=== PATIENT | female | born 1965 | race Caucasian/White ===

== ENCOUNTER → 2017-02-10 | Outpatient (CLI) | payer OTHER ==
--- NOTE | 2017-02-10 11:47 | MM ---
Reason for exam: screening (asymptomatic). Baseline mammogram. History: Patient is postmenopausal. Physical Findings: Nurse did not find any significant physical abnormalities on exam. MG 3D Screening Mammo W/Cad Bilateral CC and MLO view(s) were taken. The breast tissue is extremely dense which could obscure a lesion on mammography. There is no discrete abnormality. These results were verbally communicated with the patient and result sheet given to the patient on 02/10/17. ASSESSMENT: Negative, BI-RAD 1 RECOMMENDATION: Routine screening mammogram of both breasts in 1 year.
== END | disposition home or self-care (01) ==
LOC: RADMAMWWP 10:01
PROVIDERS: ATTEND Family Medicine
DX: Z12.31 Encounter for screening mammogram for malignant neoplasm of breast (principal)
CPT/HCPCS: 77063; G0202

== ENCOUNTER → 2018-06-15 | Outpatient (CLI) | payer BC ==
--- NOTE | 2018-06-20 12:59 | MM ---
Reason for exam: screening (asymptomatic). Last mammogram was performed 1 year and 4 months ago. History: Patient is postmenopausal and history of other cancer. Family history of breast cancer in maternal grandmother. Physical Findings: A clinical breast exam by your physician is recommended on an annual basis and results should be correlated with mammographic findings. MG 3D Screening Mammo W/Cad Bilateral CC and MLO view(s) were taken. Prior study comparison: February 10, 2017, bilateral MG 3d screening mammo w/cad. The breast tissue is heterogeneously dense. This may lower the sensitivity of mammography. There is no discrete abnormality. ASSESSMENT: Negative, BI-RAD 1 RECOMMENDATION: Routine screening mammogram of both breasts in 1 year.
== END | disposition home or self-care (01) ==
LOC: RADMAMWWP 10:42
PROVIDERS: ATTEND Family Medicine
DX: Z12.31 Encounter for screening mammogram for malignant neoplasm of breast (principal)
CPT/HCPCS: 77063; 77067

== ENCOUNTER → 2018-08-08 | Outpatient (CLI) | payer BC ==
--- NOTE | 2018-08-08 14:53 | MR ---
EXAMINATION TYPE: MR knee LT wo con DATE OF EXAM: 08/08/2018 COMPARISON: X-ray 07/12/2018 HISTORY: Lt knee pain, medial aspect, x 3 mos, no trauma TECHNIQUE: Multiplanar, multisequence imaging of the left knee is performed without IV contrast. FINDINGS: MEDIAL MENISCUS: There is a simple linear tear posterior horn medial meniscus LATERAL MENISCUS: Anterior and posterior horns are intact without tear. CRUCIATE LIGAMENTS: The anterior and posterior cruciate ligaments are intact and unremarkable. COLLATERAL LIGAMENTS: The medial collateral ligament and lateral collateral ligament complex are inta ct and unremarkable. EXTENSOR MECHANISM: Visualized quadriceps and patellar tendons are intact. EFFUSION: No significant suprapatellar joint effusion. POPLITEAL CYST: No popliteal/yang cyst. TRICOMPARTMENT SPACES: Joint spaces are preserved. No erosive changes. CARTILAGE: Cartilage is preserved. BONE MARROW SIGNAL: There is faint nonspecific signal in the epiphysis centrally within the tibia com patible with nonspecific marrow edema. IMPRESSION: 1. Linear tear posterior horn medial meniscus. 2. Nonspecific marrow edema involving the diaphysis of the tibia with no definite fracture line.
== END ==
LOC: RADMRIMAIN 14:00
PROVIDERS: ATTEND Orthopaedic Surgery
DX: S83.242A Other tear of medial meniscus, current injury, left knee, initial encounter (principal)

== ENCOUNTER → 2018-08-18 | Outpatient (CLI) | payer BC ==
--- NOTE | 2018-08-18 14:12 | XR ---
EXAMINATION TYPE: XR chest 2V DATE OF EXAM: 08/18/2018 COMPARISON: Chest CT 04/25/2013 HISTORY: Presurgical TECHNIQUE: Frontal and lateral views of the chest are obtained. FINDINGS: There is no focal air space opacity, pleural effusion, or pneumothorax seen. The cardiac silhouette size is within normal limits. There is been interval vertebroplasty at approximately T8 l evel. The osseous structures are intact. Surgical clips present in the upper abdomen. Nodules seen on CT are not seen on plain film. IMPRESSION: No acute cardiopulmonary process.
== END | disposition home or self-care (01) ==
LOC: RADXRMAIN 10:33
PROVIDERS: ATTEND Orthopaedic Surgery
DX: Z01.818 Encounter for other preprocedural examination (principal); M23.92 Unspecified internal derangement of left knee
CPT/HCPCS: 71046

== ENCOUNTER → 2018-08-18 | Outpatient (CLI) | payer BC ==
[2018-08-18 12:00] LABS: Basophils # (A) 0.1 k/uL (0-0.2); Basophils % (A) 1 %; Eosinophils # (A) 0.1 k/uL (0-0.7); Eosinophils % (A) 1 %; HCT 42.4 % (34.0-46.0); HGB 14.2 gm/dL (11.4-16.0); Lymphocytes # (A) 1.2 k/uL (1.0-4.8); Lymphocytes % (A) 21 %; MCH 33.7 pg (25.0-35.0); MCHC 33.6 g/dL (31.0-37.0); MCV 100.2 fL (80.0-100.0); Macrocytosis Slight; Mean Platelet Volume 7.9; Monocytes # (A) 0.6 k/uL (0-1.0); Monocytes % (A) 10 %; Neutrophils # (A) 3.8 k/uL (1.3-7.7); Neutrophils % (A) 65 %; Platelet Count 215 k/uL (150-450); RBC 4.23 m/uL (3.80-5.40); RDW 13.8 % (11.5-15.5); WBC 5.8 k/uL (3.8-10.6)
[2018-08-18 12:23] LABS: Potassium 4.3 mmol/L (3.5-5.1)
== END | disposition home or self-care (01) ==
LOC: LABPAT 10:58
PROVIDERS: ATTEND Orthopaedic Surgery
DX: M23.92 Unspecified internal derangement of left knee (principal)
CPT/HCPCS: 36415; 80051; 85025; 93005

== ENCOUNTER 2018-08-25 09:05 | Day surgery (SDC) | payer BC ==
[2018-08-18 12:40] VITALS: BMI 19.4
--- NOTE | 2018-08-24 13:00 | HP ---
HISTORY AND PHYSICAL CHIEF COMPLAINT: Left knee pain. 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 She notes pain and giving way. She has tried pain medications with only partial temporary relief. She notes it significant limits her. Currently, she is off work. PAST MEDICAL HISTORY: Significant for hypertension, migraine. PAST SURGICAL HISTORY: Significant for tubal ligation, thoracic kyphoplasty and brain aneurysm repair. CURRENT MEDICATIONS: Bystolic, Xanax and [place]. She has no drug allergies. FAMILY HISTORY: Significant for cancer. SOCIAL HISTORY: Significant for 1/2 pack per day tobacco use in addition to social alcohol use. REVIEW OF SYSTEMS: Sixteen point review of systems otherwise reviewed and is noncontributory. PHYSICAL EXAMINATION: On exam, the patient is approximately 5 foot 7, 123 pounds of mesomorphic habitus. HEENT: Exam is nonfocal. NECK: Supple, she has painless passive motion of her left hip. Straight leg raise is negative. Active motion of the left knee -6 to 120 degrees of flexion. Nikki's elicits medial pain. Her distal neurovascular exam appears intact in the left lower extremity. MRI report of the left knee shows the posterior meniscal tear in addition to irregularity of the chondral surface of the medial femoral condyle. IMPRESSION: Internal derangement, left knee with symptomatic medial meniscal tear. RECOMMENDATION: I talked to the patient at length regarding her condition and treatment options. At this point, she is quite symptomatic and opts to proceed surgery. We will plan to pursue arthroscopic evaluation with probable partial medial meniscectomy of the medial femoral chondrectomy. Risks and benefits were discussed at length in layman's term. We will likely perform that as an outpatient procedure. MMODL / IJN: [id number] / [facility]
[~2018-08-25 09:05] MED LIST: ceFAZolin 1,000 MG in DEXTROSE/WATER 1 50ML.BAG IV ONE
[2018-08-25] MEDS ORDERED: ONDANSETRON 4 MG/2 ML VIAL IVP STA (09:33)
[2018-08-25] MEDS ORDERED: DEXAMETHASONE SOD PHOSPHATE 10 MG/ML 1 ML VIAL IV STA (09:33)
[2018-08-25] MEDS ORDERED: LACTATED RINGERS 1,000 ML IV ONE (09:36)
[2018-08-25] MEDS ORDERED: LIDOCAINE 1%-EPI 1:100,000 30 ML VIAL INTRAARTIC ONE (09:36)
[2018-08-25] MEDS ORDERED: LACTATED RINGERS 1,000 ML IV SCH (09:45)
[2018-08-25] MEDS ORDERED: MIDAZOLAM 2 MG/2 ML VIAL IVP ONE (10:10)
[2018-08-25] MEDS ORDERED: LIDOCAINE 1% INJ 10MG/ML (20 ML MDV) ONE (11:20)
[2018-08-25] MEDS ORDERED: PROPOFOL 10 MG/ML 20 ML VIAL IV ONE (11:20)
[2018-08-25] MEDS ORDERED: MIDAZOLAM 2 MG/2 ML VIAL ONE (11:20)
[2018-08-25] MEDS ORDERED: fentaNYL (PF) 50 MCG/ML 2 ML AMP ONE (11:20)
--- NOTE | 2018-08-25 12:04 | P.OP ---
Date of Procedure: 08/25/18 Preoperative Diagnosis: Left knee internal derangement Postoperative Diagnosis: Left knee posterior medial meniscal tear/grade 3 chondral injury posterior distal medial femoral condyle/patellofemoral plica Procedure(s) Performed: Left knee arthroscopic partial medial meniscectomy/medial femoral chondrectomy/ plica resection Anesthesia: LUCIUS Surgeon: Alex Davis Estimated Blood Loss (ml): 10 Pathology: none sent Condition: stable Disposition: PACU Indications for Procedure: The patient's a 53-year-old female who presents with progressive left knee pain and mechanical symptoms despite conservative measures. A discussion of the risks and benefits of operative intervention versus continued conservative measures was made with patient. She opted to proceed with surgery. Operative risks to include infection, neurovascular injury, development of blood clots, possible incomplete resolution of symptoms, possible worsening symptoms and need for subsequent procedures was discussed. Informed consent was obtained. Operative Findings: As below Description of Procedure: The patient was brought to the operating room, and after induction of general anesthesia examined the left knee. Collaterals were stable, [place] was negative, and posterior drawer was negative. The left lower extremity was prepped and draped in normal fashion. A superior lateral portal was made through a 3 mm skin incision superior and lateral to the patella. This was used for outflow. A lateral portal was made through a 5 mm vertical skin incision lateral to the patella tendon above the joint line. Diagnostic arthroscopy was performed. A medial portal was made through a similar incision medial to the patella tendon above the joint line. On inspection medial compartment, there was a linear tear involving the posterior most aspect of the medial meniscus in the white-white junction. This was debrided back to stable base with straight baskets. The remaining medial meniscus was stable and intact. A grade 3 chondral injury was noted involving the posterior central portion of the medial femoral condyle with a loose chondral fragment. This was debrided back to a stable base with a motorized shaver. On inspection of the notch, the anterior cruciate ligament appeared to be intact. On inspection of the lateral compartment, no significant meniscal or cartilage pathology was noted. On inspection patellofemoral articulation, a medial patellofemoral plica appeared to impinge on the medial femoral condyle. There is debrided back to stable base with a motorized shaver. The gutters were clear debris. The knee was then thoroughly irrigated. The portals were closed with Steri- Strips. A sterile dressing was applied in addition to a compression stocking. The patient was awoken from general anesthesia and transferred to recovery room in good condition. Blood loss was estimated at 10 mL. No complications were incurred.
[2018-08-25 12:09] VITALS: TEMP 97.3
[2018-08-25] MEDS ORDERED: KETOROLAC 30 MG/ML 1 ML VIAL IVP ONE (12:10)
[2018-08-25] MEDS: HYDROmorphone 1 MG/ML 1 ML SYRINGE IVP ONE ×2 (12:17→12:23)
[2018-08-25 12:31] VITALS: RESP 16
[2018-08-25 13:18] VITALS: BP 135/86; PULSE 77
== END 2018-08-25 13:25 | disposition home or self-care (01) ==
LOC: OR 09:05
PROVIDERS: ATTEND Orthopaedic Surgery
DX: S83.242A Other tear of medial meniscus, current injury, left knee, initial encounter (principal); X58.XXXA Exposure to other specified factors, initial encounter; S83.32XA Tear of articular cartilage of left knee, current, initial encounter; M67.52 Plica syndrome, left knee; I10 Essential (primary) hypertension; G43.909 Migraine, unspecified, not intractable, without status migrainosus; Z79.891 Long term (current) use of opiate analgesic; Z79.899 Other long term (current) drug therapy; F17.210 Nicotine dependence, cigarettes, uncomplicated; Z85.828 Personal history of other malignant neoplasm of skin; Z87.442 Personal history of urinary calculi
CPT/HCPCS: 29881; J2250; J1100; J2405; J2001; J3010; J1885; J1170; J0690; J2704

== ENCOUNTER 2023-09-28 08:20 | Day surgery (SDC) | payer OTHER, MEDICARE ==
[2023-09-27 12:35] VITALS: BMI 18.2
[2023-09-28] MEDS ORDERED: LACTATED RINGERS 1,000 ML IV ONE (08:35)
[2023-09-28 09:06] VITALS: TEMP 96.9
[2023-09-28] MEDS ORDERED: PROPOFOL 10 MG/ML 20 ML VIAL IV ONE (09:19)
--- NOTE | 2023-09-28 09:24 | P.GSHP ---
History of Present Illness H&P Date: 09/28/23 CHIEF COMPLAINT: Colon screen HISTORY OF PRESENT ILLNESS: The patient is a 58-year-old female who presents for colon screen. Lower endoscopy was offered for further evaluation and management. PAST MEDICAL HISTORY: Please see list. PAST SURGICAL HISTORY: Please see list. MEDICATIONS: Please see list. ALLERGIES: Please see list. SOCIAL HISTORY: No illicit drug use FAMILY HISTORY: No reports of Crohn disease or ulcerative colitis. REVIEW OF ORGAN SYSTEMS: CONSTITUTIONAL: No reports of fevers or chills. PHYSICAL EXAM: VITAL SIGNS: Stable GENERAL: Well-developed pleasant in no acute distress. HEENT: No scleral icterus. Extraocular movements grossly intact. Moist buccal mucosa. NECK: Supple without lymphadenopathy. CHEST: Unlabored respirations. Equal bilateral excursions. CARDIOVASCULAR: Regular rate and rhythm. Distal 2+ pulses. ABDOMEN: Soft, nontender, nondistended. MUSCULOSKELETAL: No clubbing, cyanosis, or edema. ASSESSMENT: 1. Colon screen. PLAN: 1. Recommend proceeding with a lower endoscopy Past Medical History Past Medical History: Hyperlipidemia, Hypertension Additional Past Medical History / Comment(s): Fractured back February 2016, has bulging discs. Migraines. History of Any Multi-Drug Resistant Organisms: None Reported Past Surgical History: Cholecystectomy, Tubal Ligation Additional Past Surgical History / Comment(s): Brain aneurysm repair, laproscopy. Past Anesthesia/Blood Transfusion Reactions: No Reported Reaction Past Psychological History: No Psychological Hx Reported Smoking Status: Current every day smoker Past Alcohol Use History: Occasional Additional Past Alcohol Use History / Comment(s): Smokes 1/2 ppd, started 20 yrs ago. Past Drug Use History: Marijuana Additional Drug Use History / Comment(s): Marijuana use 2-3 times a week. AWare no use 24 hrs prior to procedure. - Past Family History Mother Family Medical History: No Reported History Medications and Allergies Home Medications Medication Instructions Recorded Confirmed Type Multivitamins, Thera [Multivitamin 1 tab PO W/SUPPER 08/18/18 09/28/23 History (formulary)] Atorvastatin [Lipitor] 20 mg PO QAM 09/27/23 09/28/23 History HYDROcodone/APAP 5-325MG [[place] 1 tab PO BID PRN 09/27/23 09/28/23 History 5-325] Metoprolol Succinate (ER) [Toprol 100 mg PO QAM 09/27/23 09/28/23 History Xl] diazePAM [Diazepam] 25 mg PO QAM 09/27/23 09/28/23 History Allergies Allergy/AdvReac Type Severity Reaction Status Date / Time No Known Allergies Allergy Verified 09/28/23 08:33 Surgical - Exam Vital Signs Temp Pulse Resp BP Pulse Ox 96.9 F L 91 18 171/78 99 09/28/23 08:32 09/28/23 08:32 09/28/23 08:32 09/28/23 08:32 09/28/23 08:32
[2023-09-28 10:05] VITALS: BP 129/76; PULSE 88; RESP 16
--- NOTE | 2023-09-28 10:18 | P.PCN ---
Date of Procedure: 09/28/23 Description of Procedure: PREOPERATIVE DIAGNOSIS: Colonoscopy screening POSTOPERATIVE DIAGNOSIS: Tubular adenoma, appendix Colitis with bleeding, ascending colon OPERATION: Colonoscopy to the ileocecal valve and appendiceal orifice, cecum Colonoscopy with hot snare polypectomy SURGEON: Sweta Girard MD. ANESTHESIA: MAC. INDICATIONS: The patient is an 58-year-old female who presents for colonoscopy screening. Benefits and risks were described and informed consent was obtained. DESCRIPTION OF PROCEDURE: The patient had undergone Golytely. The patient had been brought into the operating room and laid in the left lateral decubitus position. After adequate intravenous sedation, the rectum was examined with 2% lidocaine jelly. No external hemorrhoids were encountered. The rectal tone was within normal limits. No lesions were palpated in the rectal vault. An Olympus colonoscope was ad vanced until the cecum, ileocecal valve and appendiceal orifice were clearly viewed. The prep was good. No sigmoid diverticulosis was encountered. Colonic polyps were found and removed. Focal colitis was found. Retroflexion of the scope demonstrated grade 1 internal hemorrhoids without active bleeding or inflammation. The colon was desufflated. The patient had tolerated the procedure well. Withdrawal time was over 6 minutes. FINDINGS: Aronchick preparation quality scale 1 (1-5) Internal hemorrhoids, grade 1 No external hemorrhoids No arteriovenous malformations. No sigmoid diverticulosis Removal of 1 polyps: - Snare polypectomy at appendix, 5 mm tubulovillous adenoma. Focal colitis, ascending colon RECOMMENDATIONS: Recommend repeat colonoscopy in 3 years, 2019 Plan - Discharge Summary Discharge Rx Participant: No New Discharge Prescriptions: Continue Multivitamins, Thera [Multivitamin (formulary)] 1 tab PO W/SUPPER diazePAM 25 mg PO QAM Atorvastatin [Lipitor] 20 mg PO QAM HYDROcodone/APAP 5-325MG [[place] 5-325] 1 tab PO BID PRN PRN Reason: Pain Metoprolol Succinate (ER) [Toprol XL] 100 mg PO QAM Discharge Medication List Multivitamins, Thera [Multivitamin (formulary)] 1 tab PO W/SUPPER 08/18/18 [History] Atorvastatin [Lipitor] 20 mg PO QAM 09/27/23 [History] HYDROcodone/APAP 5-325MG [[place] 5-325] 1 tab PO BID PRN 09/27/23 [History] Metoprolol Succinate (ER) [Toprol XL] 100 mg PO QAM 09/27/23 [History] diazePAM 25 mg PO QAM 09/27/23 [History] Follow up Appointment(s)/Referral(s): Sweta Girard MD [STAFF PHYSICIAN] - As Needed Patient Instructions/Handouts: Colitis (ED), Colorectal Polyps (GEN) Activity/Diet/Wound Care/Special Instructions: Repeat colonoscopy in 3 years, 2025 Discharge Disposition: HOME SELF-CARE
== END 2023-09-28 10:26 | disposition home or self-care (01) ==
LOC: ORWHC2ENDO 08:20
PROVIDERS: ATTEND Surgery Plastic and Reconstructive Surgery
DX: Z12.11 Encounter for screening for malignant neoplasm of colon (principal); K63.5 Polyp of colon; K64.0 First degree hemorrhoids; K52.9 Noninfective gastroenteritis and colitis, unspecified; I10 Essential (primary) hypertension; G43.909 Migraine, unspecified, not intractable, without status migrainosus; E78.5 Hyperlipidemia, unspecified; F17.210 Nicotine dependence, cigarettes, uncomplicated; F12.90 Cannabis use, unspecified, uncomplicated; Z90.49 Acquired absence of other specified parts of digestive tract; Z98.51 Tubal ligation status; Z98.890 Other specified postprocedural states; Z79.899 Other long term (current) drug therapy
CPT/HCPCS: 88305; 45385; J2704

== ENCOUNTER → 2024-01-16 | Outpatient (CLI) | payer OTHER, MEDICARE ==
--- NOTE | 2024-01-17 09:38 | MM ---
Reason for Exam: Screening (asymptomatic). Last mammogram was performed 5 year(s) and 7 month(s) ago. Patient History: Menarche at age 12. First Full-Term at age 24. Postmenopausal. Other cancer. Maternal grandmother had breast cancer. Risk Values: Aaliyah 5 year model risk: 1.5%. NCI Lifetime model risk: 7.4%. Prior Study Comparison: 02/10/2017 Bilateral Screening Mammogram, [facility]. 06/15/2018 Bilateral Screening Mammogram, [facility]. Tissue Density: The breasts are extremely dense, which lowers the sensitivity of mammography. Findings: Analyzed By CAD. There is no suspicious group of microcalcifications or new suspicious mass in either breast. Benign-appearing calcifications. Overall Assessment: Benign, BI-RAD 2 Management: Screening Mammogram of both breasts in 1 year. . Patient should continue monthly self-breast exams. A clinical breast exam by your physician is recommended on an annual basis. This exam should not preclude additional follow-up of suspicious palpable abnormalities. Note on Aaliyah scores and lifetime risk: 1. A Aaliyah score greater than 3% is considered moderate risk. If this is the case, consider specialist referral to assess eligibility for a risk reducing agent. 2. If overall lifetime risk for the development of breast cancer is 20% or higher, the patient may qualify for future screening with alternating mammogram and breast MRI. Electronically signed and approved by: Delvis Pollock M.D. Radiologis
== END | disposition home or self-care (01) ==
LOC: RADMAMWWP 15:15
PROVIDERS: ATTEND Family Medicine
DX: Z12.31 Encounter for screening mammogram for malignant neoplasm of breast (principal); Z78.0 Asymptomatic menopausal state; Z80.3 Family history of malignant neoplasm of breast
CPT/HCPCS: 77063; 77067

== ENCOUNTER → 2024-02-29 | Outpatient (CLI) | payer OTHER, MEDICARE ==
--- NOTE | 2024-02-29 12:00 | CA ---
Exercise Stress Test Report Name: Yesi Mcneill Exam Date: 02/29/2024 08:55 Exam Location: [place] Stress Ht (in): 67 Wt (lb): 114 BSA: 1.59 Ordering Phys: Memo Huffman DO Referring Phys: Saba Vazquez [facility] Technologist: Adam Cervantes Age: 58 Gender: F : 1965 Procedure CPT: Indications: Z82.49 FAMILY HX OF ISCHEM HEART DIS AND OTH DIS O ICD-10 Codes: Patient History: DIFFICULTY IN BREATHING, HTN, HYPERCHOLESTEROLEMIA, FAMILY HX OF HEART DISEASE, FORMER SMOKER Medications: AMLODIPINE, HYDRALAZINE Meds past 24 hrs: Pretest Chest Pain: STRESS TEST Frank Protocol Exercise Duration (min:sec): 10:[address] Depressions (mm): Angina Score: Bhatt Score: Resting HR (bpm): 81 Peak HR (bpm): 151 Resting BP (mmHg): 144 / 81 Peak BP (mmHg): 202 / 88 MPHR: 160 Target HR: 136 % MPHR: 94 METS: 12.1 Total Dose: Peak Dose: Atropine: Double Product: 86925 BP Response: Stress Termination: TARGET HR REACHED/MAX EXERTION Stress Symptoms: NO SYMPTOMS Stress Summary: ECG ANALYSIS Resting ECG: Stress ECG: CONCLUSIONS Excellent exercise tolerance. The patient exercised for 10 minutes on Frank protocol Mild EKG changes with half millimeter horizontal ST segment depression Dr. Jeffrey Collado MD (Electronically Signed) Final Date: 29 Feb 2024 11:59
--- NOTE | 2024-02-29 12:10 | CA ---
Transthoracic Echo Report Name: Yesi Mcneill Age: 58 Gender: F : 1965 Exam Date: 02/29/2024 09:19 Exam Location: [place] Echo Ht (in): 66 Wt (lb): 114 Ordering Physician: Memo Huffman DO Attending/Referring Phys: Saba Vazquez [facility] Television News Reporter Neema Bhakta RDCS Procedure CPT: Indications: Z82.49 FAMILY HX OF ISCHEM HEART DIS AND OTH DIS O Cardiac Hx: Technical Quality: Fair Contrast 1: Total Dose (mL): Contrast 2: Total Dose (mL): MEASUREMENTS (Male / Female) Normal Values 2D ECHO LV Diastolic Diameter PLAX 3.9 cm 4.2 - 5.9 / 3.9 - 5.3 cm LV Systolic Diameter PLAX 2.7 cm IVS Diastolic Thickness 1.0 cm 0.6 - 1.0 / 0.6 - 0.9 cm LVPW Diastolic Thickness 1.2 cm 0.6 - 1.0 / 0.6 - 0.9 cm LV Relative Wall Thickness 0.6 RV Internal Dim ED PLAX 3.2 cm LA Volume 27.8 cm??? 18 - 58 / 22 - 52 cm??? LA Volume Index 18.0 cm???/m??? 16 - 28 cm???/m??? M-MODE Aortic Root Diameter MM 3.0 cm LA Systolic Diameter MM 3.8 cm LA Ao Ratio MM 1.3 AV Cusp Separation MM 1.6 cm DOPPLER AV Peak Velocity 127.5 cm/s AV Peak Gradient 6.5 mmHg AV Mean Velocity 93.3 cm/s AV Mean Gradient 3.9 mmHg AV Velocity Time Integral 26.3 cm LVOT Peak Velocity 76.6 cm/s LVOT Peak Gradient 2.3 mmHg LVOT Velocity Time Integral 16.2 cm MV Area PHT 4.4 cm??? Mitral E Point Velocity 70.8 cm/s Mitral A Point Velocity 109.8 cm/s Mitral E to A Ratio 0.6 MV Deceleration Time 171.5 ms MV E' Velocity 5.3 cm/s Mitral E to MV E' Ratio 13.4 TR Peak Velocity 202.3 cm/s TR Peak Gradient 16.4 mmHg Right Ventricular Systolic Press 21.4 mmHg FINDINGS Left Ventricle Mildly increased left ventricular wall thickness. Left ventricular cavity size normal. Grade 1 diastolic dysfunction. Normal left ventricular systolic function with no obvious regional wall motion abnormalities. Left ventricular ejection fraction is estimated at 55-60 %. Right Ventricle Normal right ventricular size and function. Right ventricular systolic pressure within normal limits. Right Atrium Normal right atrial size. Left Atrium Normal left atrial size. Mitral Valve Structurally normal mitral valve. No mitral stenosis. Mild mitral regurgitation. Aortic Valve Trileaflet aortic valve. No aortic valve stenosis or regurgitation. Tricuspid Valve Structurally normal tricuspid valve. Mild tricuspid regurgitation. Pulmonic Valve Structurally normal pulmonic valve. Trace pulmonic regurgitation. Pericardium No pericardial effusion. Aorta Normal size aortic root and proximal ascending aorta. CONCLUSIONS Normal LV systolic function. Impaired relaxation of the left ventricle No significant valvular abnormalities Previewed by: Dr. Jeffrey Colaldo MD (Electronically Signed) Final Date: 29 Feb 2024 12:09
== END | disposition home or self-care (01) ==
LOC: RADECHMAIN 08:34
PROVIDERS: ATTEND Family Medicine
DX: R94.31 Abnormal electrocardiogram [ECG] [EKG] (principal); Z82.49 Family history of ischemic heart disease and other diseases of the circulatory system
CPT/HCPCS: 93017; 93306

== ENCOUNTER → 2025-02-01 | Outpatient (CLI) | payer MEDICARE ==
--- NOTE | 2025-02-01 10:26 | MM ---
Reason for Exam: Screening (asymptomatic). Last mammogram was performed 1 year(s) and 1 month(s) ago. Patient History: Menarche at age 12. First Full-Term at age 24. Postmenopausal. Other cancer. Maternal grandmother had breast cancer. Risk Values: Aaliyah 5 year model risk: 1.5%. NCI Lifetime model risk: 7.2%. Prior Study Comparison: 02/10/2017 Bilateral Screening Mammogram, [facility]. 06/15/2018 Bilateral Screening Mammogram, [facility]. 01/16/2024 Bilateral MG 3D screening mammo w/cad, [facility]. Tissue Density: The breasts are extremely dense, which lowers the sensitivity of mammography. Findings: Analyzed By CAD. There is no suspicious group of microcalcifications or new suspicious mass in either breast. Overall Assessment: Negative, BI-RAD 1 Management: Screening Mammogram of both breasts in 1 year. . Patient should continue monthly self-breast exams. A clinical breast exam by your physician is recommended on an annual basis. This exam should not preclude additional follow-up of suspicious palpable abnormalities. Note on Aaliyah scores and lifetime risk: 1. A Aaliyah score greater than 3% is considered moderate risk. If this is the case, consider specialist referral to assess eligibility for a risk reducing agent. 2. If overall lifetime risk for the development of breast cancer is 20% or higher, the patient may qualify for future screening with alternating mammogram and breast MRI. [facility], , 02/01/2025 10:21 AM. Electronically signed and approved by: Mickey Trevino M.D. Radiologis
== END | disposition home or self-care (01) ==
LOC: RADMAMWWP 09:41
PROVIDERS: ATTEND Family Medicine
DX: Z12.31 Encounter for screening mammogram for malignant neoplasm of breast (principal); R92.343 Mammographic extreme density, bilateral breasts; Z78.0 Asymptomatic menopausal state; Z80.3 Family history of malignant neoplasm of breast
CPT/HCPCS: 77063; 77067